=== PATIENT | male | born 1985 | race Caucasian/White ===

== ENCOUNTER 2018-07-30 07:33 | Inpatient (IN) | payer MEDICAID ==
[~2018-07-30] VITALS: Ht 175.3 cm; Wt 108.9 kg
[2018-07-30] VITALS (40 sets, daily range): BP systolic 63–143; BP diastolic 25–67
[2018-07-30] MEDS ORDERED: IBUP-2271 PO (08:44)
[2018-07-30] MEDS ORDERED: LACTATED RINGERS 1,000 ML IV SCH (09:15)
[2018-07-30] MEDS ORDERED: GELATIN SPONGE,ABSORBABLE 12-7MM SPONGE ONE (09:17)
[2018-07-30] MEDS ORDERED: LIDOCAINE HCL/EPINEPHRINE 1%-EPI 1:100,000 20 ML VIAL ONE (09:17)
[2018-07-30] MEDS ORDERED: NORMAL SALINE 0.9% 10 ML SYR ONE (09:17)
[2018-07-30] MEDS ORDERED: THROMBIN (BOVINE) 5000 UNITS/VIAL TOP ONE ×2 (09:17→09:18)
[2018-07-30] MEDS ORDERED: BACITRACIN 50,000 UNITS/VIAL ONE (09:18)
[2018-07-30] MEDS ORDERED: MIDAZOLAM HCL 2 MG/2 ML VIAL ONE (11:27)
[2018-07-30] MEDS ORDERED: PROPOFOL 200MG/20ML VIAL IV ONE (11:27)
[2018-07-30] MEDS ORDERED: ROCURONIUM BROMIDE 10MG/ML VIAL 5ML IV ONE ×2 (11:27→12:41)
[2018-07-30] MEDS ORDERED: FENTANYL CITRATE/PF 50MCG/ML 2ML VIAL ONE ×2 (11:27→13:36)
[2018-07-30] MEDS ORDERED: MORPHINE SULFATE 4 MG/ML CPJ (NOT FOR IM USE) IV PRN (11:45)
[2018-07-30] MEDS ORDERED: DEXAMETHASONE 4MG/ML 1ML VIAL IV SCH ×2 (12:00→18:00)
[2018-07-30] MEDS ORDERED: SUCCINYLCHOLINE CHLORIDE 200MG/10ML IV ONE (12:41)
[2018-07-30] MEDS ORDERED: GLYCOPYRROLATE 0.2 MG/ML 2ML VIAL ONE (13:02)
[2018-07-30] MEDS ORDERED: NEOSTIGMINE METHYLSULFATE 1MG/ML 10 ML VIAL ONE (13:02)
[2018-07-30] MEDS ORDERED: METOCLOPRAMIDE HCL 10MG/2ML VIAL ONE (13:35)
[2018-07-30] MEDS ORDERED: CEFAZOLIN SODIUM 1000MG/VIAL IV SCH (14:00)
[2018-07-30] MEDS ORDERED: NALOXONE INJ IV PRN (15:30)
[2018-07-30] MEDS ORDERED: DIPHENHYDRAMINE INJ IV PRN (15:30)
[2018-07-30] MEDS ORDERED: ONDANSETRON INJ IV PRN (15:30)
[2018-07-30] MEDS ORDERED: HYDROCODONE/APAP 7.5/325MG 1 TAB TABLET PO PRN (17:00)
[2018-07-30] MEDS: DEXAMETHASONE 4MG/ML 1ML VIAL IV SCH ×2 (17:14→23:42)
[2018-07-30] MEDS: DEXT 5%/LACTATED RINGERS 1,000 ML IV SCH ×2 (17:15→23:42)
[2018-07-30] MEDS ORDERED: NICARDIPINE 100 MG in SODIUM CHLORIDE 0.9% 60 ML IV PRN ×4 (17:30)
[2018-07-30] MEDS ORDERED: SODIUM CHLORIDE 0.9% 1,000 ML IV SCH ×2 (18:30)
[2018-07-30 18:48] LABS: HEMATOCRIT. 36.7 % (42.0-52.0); HEMOGLOBIN. 12.5 g/dL (14.0-18.0); MEAN CORPUSCULAR HEMOGLOBIN 28.8 pg (28.0-32.0); MEAN CORPUSCULAR VOLUME 84.2 fL (80.0-94.0); MEAN PLATELET VOLUME 7.9 fl (7.4-10.4); PLATELET 198 x1000/uL (130-400); RED BLOOD CELL COUNT 4.36 mill/uL (4.7-6.1); RED CELL DISTRIBUTION WIDTH 13.3 % (11.6-14.6)
[2018-07-30] MEDS ORDERED: ALBUMIN HUMAN 25GM/500ML (5%) IV NR (19:00)
[2018-07-30 20:34] LABS: PLATELET ESTIMATE NORMAL
[2018-07-30] MEDS: HYDROMORPHONE PCA 10MG/50ML IV PRN (21:09)
[2018-07-30] MEDS: CEFAZOLIN 1000MG PREMIX 50 ML IV SCH (21:59)
[2018-07-31] VITALS (97 sets, daily range): BP systolic 65–144; BP diastolic 29–77
[2018-07-31] MEDS: DEXT 5%/LACTATED RINGERS 1,000 ML IV SCH ×3 (06:02→23:56)
[2018-07-31] MEDS: DEXAMETHASONE 4MG/ML 1ML VIAL IV SCH ×3 (06:02→23:56)
[2018-07-31] MEDS: CEFAZOLIN 1000MG PREMIX 50 ML IV SCH ×3 (06:02→22:11)
[2018-07-31] MEDS ORDERED: SODIUM CHLORIDE 0.9% 500 ML IV SCH (06:45)
[2018-07-31] MEDS ORDERED: LACTATED RINGERS 1,000 ML IV ONE (08:15)
[2018-07-31 09:54] LABS: HEMATOCRIT. 35.9 % (42.0-52.0); HEMOGLOBIN. 12.1 g/dL (14.0-18.0); MEAN CORPUSCULAR HEMOGLOBIN 28.5 pg (28.0-32.0); MEAN CORPUSCULAR VOLUME 84.9 fL (80.0-94.0); MEAN PLATELET VOLUME 7.9 fl (7.4-10.4); PLATELET 215 x1000/uL (130-400); RED BLOOD CELL COUNT 4.23 mill/uL (4.7-6.1); RED CELL DISTRIBUTION WIDTH 13.4 % (11.6-14.6)
[2018-07-31 10:01] LABS: CHLORIDE 107 mEq/L (98-107)
[2018-07-31 10:41] LABS: PLATELET ESTIMATE NORMAL
[2018-07-31] MEDS: HYDROMORPHONE PCA 10MG/50ML IV PRN (22:12)
[2018-08-01] VITALS (104 sets, daily range): BP systolic 46–155; BP diastolic 27–89
[2018-08-01 05:55] LABS: CHLORIDE 107 mEq/L (98-107)
[2018-08-01 06:00] LABS: HEMATOCRIT. 33.5 % (42.0-52.0); HEMOGLOBIN. 11.3 g/dL (14.0-18.0); MEAN CORPUSCULAR HEMOGLOBIN 28.7 pg (28.0-32.0); MEAN CORPUSCULAR VOLUME 85.1 fL (80.0-94.0); MEAN PLATELET VOLUME 8.5 fl (7.4-10.4); PLATELET 212 x1000/uL (130-400); RED BLOOD CELL COUNT 3.94 mill/uL (4.7-6.1); RED CELL DISTRIBUTION WIDTH 13.3 % (11.6-14.6)
[2018-08-01] MEDS: CEFAZOLIN 1000MG PREMIX 50 ML IV SCH ×3 (06:34→21:14)
[2018-08-01] MEDS: DEXAMETHASONE 4MG/ML 1ML VIAL IV SCH ×3 (06:34→18:06)
[2018-08-01] MEDS: DOPAMINE 400MG/250ML PREMIX 250 ML IV PRN ×2 (07:33→15:16)
[2018-08-01] MEDS ORDERED: SODIUM CHLORIDE 0.9% 500 ML IV SCH (07:45)
[2018-08-01] MEDS: ONDANSETRON HCL 4MG/2ML INJ IV PRN ×2 (08:54→19:52)
[2018-08-01] MEDS: DEXT 5%/LACTATED RINGERS 1,000 ML IV SCH ×3 (09:42→19:52)
[2018-08-01 10:10] LABS: PLATELET ESTIMATE NORMAL
[2018-08-01] MEDS: FAMOTIDINE 20MG/2ML VIAL IV SCH (10:26)
[2018-08-01 20:19] LABS: CHLORIDE 105 mEq/L (98-107)
[2018-08-02] VITALS (94 sets, daily range): BP systolic 84–137; BP diastolic 26–78
[2018-08-02] MEDS: DOPAMINE 400MG/250ML PREMIX 250 ML IV PRN ×2 (00:28→15:51)
[2018-08-02] MEDS: DEXAMETHASONE 4MG/ML 1ML VIAL IV SCH ×4 (00:28→19:39)
[2018-08-02] MEDS: DEXT 5%/LACTATED RINGERS 1,000 ML IV SCH ×3 (02:55→19:40)
[2018-08-02 05:37] LABS: CHLORIDE 103 mEq/L (98-107)
[2018-08-02 08:13] LABS: HEMATOCRIT. 41.1 % (42.0-52.0); HEMOGLOBIN. 13.9 g/dL (14.0-18.0); MEAN CORPUSCULAR HEMOGLOBIN 28.5 pg (28.0-32.0); MEAN CORPUSCULAR VOLUME 84.3 fL (80.0-94.0); MEAN PLATELET VOLUME 7.3 fl (7.4-10.4); PLATELET 260 x1000/uL (130-400); RED BLOOD CELL COUNT 4.88 mill/uL (4.7-6.1); RED CELL DISTRIBUTION WIDTH 13.2 % (11.6-14.6)
[2018-08-02 08:34] LABS: PLATELET ESTIMATE NORMAL
[2018-08-02] MEDS: ONDANSETRON HCL 4MG/2ML INJ IV PRN (13:40)
[2018-08-02] MEDS: FAMOTIDINE 20MG/2ML VIAL IV SCH (13:40)
[2018-08-02] MEDS ORDERED: MAGNESIUM/ALUMINUM HYDROXIDE/SIMETHICONE 30ML UDC PO NR (15:15)
[2018-08-02] MEDS ORDERED: MAGNESIUM/ALUMINUM HYDROXIDE/SIMETHICONE 30ML UDC PO PRN (15:15)
[2018-08-02] MEDS ORDERED: PANTOPRAZOLE SODIUM 40 MG/VIAL IV NR (15:15)
[2018-08-02] MEDS: HYDROMORPHONE PCA 10MG/50ML IV PRN (15:22)
[2018-08-03] VITALS (100 sets, daily range): BP systolic 55–179; BP diastolic 29–84
[2018-08-03] MEDS: DEXAMETHASONE 4MG/ML 1ML VIAL IV SCH ×4 (00:19→18:24)
[2018-08-03] MEDS: DEXT 5%/LACTATED RINGERS 1,000 ML IV SCH ×3 (03:52→21:26)
[2018-08-03] MEDS: ONDANSETRON HCL 4MG/2ML INJ IV PRN (04:04)
[2018-08-03 05:47] LABS: BASOPHILS % 0.1 % (0.0-2.0); HEMATOCRIT. 44.6 % (42.0-52.0); HEMOGLOBIN. 15.2 g/dL (14.0-18.0); LYMPHOCYTES % 9.1 % (20.0-50.0); MEAN PLATELET VOLUME 7.6 fl (7.4-10.4); MONOCYTES % 6.1 % (2.0-8.0); NEUTROPHILS % 84.7 % (40.0-76.0); PLATELET 260 x1000/uL (130-400); RED BLOOD CELL COUNT 5.25 mill/uL (4.7-6.1); RED CELL DISTRIBUTION WIDTH 13.2 % (11.6-14.6)
[2018-08-03 05:55] LABS: CHLORIDE 101 mEq/L (98-107)
[2018-08-03] MEDS: PANTOPRAZOLE SODIUM 40 MG/VIAL IV SCH (09:51)
[2018-08-03] MEDS ORDERED: SODIUM CHLORIDE 0.9% 500 ML IV ONE (15:45)
[2018-08-04] VITALS (69 sets, daily range): BP systolic 74–139; BP diastolic 31–81
[2018-08-04] MEDS: DEXAMETHASONE 4MG/ML 1ML VIAL IV SCH ×2 (01:02→05:45)
[2018-08-04 06:06] LABS: HEMATOCRIT. 40.4 % (42.0-52.0); HEMOGLOBIN. 13.9 g/dL (14.0-18.0); MEAN CORPUSCULAR HEMOGLOBIN 29.1 pg (28.0-32.0); MEAN CORPUSCULAR VOLUME 84.5 fL (80.0-94.0); MEAN PLATELET VOLUME 7.9 fl (7.4-10.4); PLATELET 279 x1000/uL (130-400); RED BLOOD CELL COUNT 4.78 mill/uL (4.7-6.1); RED CELL DISTRIBUTION WIDTH 13.2 % (11.6-14.6)
[2018-08-04 06:14] LABS: CHLORIDE 101 mEq/L (98-107)
[2018-08-04] MEDS: DEXT 5%/LACTATED RINGERS 1,000 ML IV SCH ×2 (06:55→17:33)
[2018-08-04] MEDS ORDERED: SODIUM CHLORIDE 0.9% 250 ML IV ONE (08:30)
[2018-08-04] MEDS: PANTOPRAZOLE SODIUM 40 MG/VIAL IV SCH (08:44)
[2018-08-04 09:34] LABS: PLATELET ESTIMATE NORMAL
[2018-08-04] MEDS ORDERED: HYDROMORPHONE PCA 10MG/50ML IV PRN (17:30)
[2018-08-05] VITALS: BP 94/40
[2018-08-05] MEDS: DEXT 5%/LACTATED RINGERS 1,000 ML IV SCH ×4 (00:42→22:16)
[2018-08-05 04:00] VITALS: BP 91/40
[2018-08-05 06:20] LABS: HEMATOCRIT. 39.6 % (42.0-52.0); HEMOGLOBIN. 13.5 g/dL (14.0-18.0); MEAN CORPUSCULAR HEMOGLOBIN 29.1 pg (28.0-32.0); MEAN CORPUSCULAR VOLUME 85.3 fL (80.0-94.0); MEAN PLATELET VOLUME 7.8 fl (7.4-10.4); PLATELET 280 x1000/uL (130-400); RED BLOOD CELL COUNT 4.64 mill/uL (4.7-6.1); RED CELL DISTRIBUTION WIDTH 13.4 % (11.6-14.6)
[2018-08-05 06:50] LABS: CHLORIDE 100 mEq/L (98-107)
[2018-08-05 08:00] VITALS: BP 102/52
[2018-08-05] MEDS: DEXAMETHASONE 4MG TABLET PO SCH (09:37)
[2018-08-05] MEDS: PANTOPRAZOLE SODIUM 40 MG/VIAL IV SCH (09:37)
[2018-08-05 12:00] VITALS: BP 95/45
[2018-08-05 16:00] VITALS: BP 93/37
[2018-08-05] MEDS ORDERED: LACTULOSE 20G/30ML UDC PO NR (16:45)
[2018-08-05] MEDS: POLYETHYLENE GLYCOL 3350 (17GM) 1 DOSE PACK PO SCH ×3 (17:32→17:41)
[2018-08-05] MEDS: ACETAMINOPHEN 650MG/20.3ML UDC PO PRN (18:15)
[2018-08-05 20:00] VITALS: BP 103/46
[2018-08-05] MEDS: TRAMADOL 50MG TABLET PO PRN (22:12)
[2018-08-06] VITALS: BP 112/51
[2018-08-06 00:30] LABS: CLARITY URINE CLOUDY (CLEAR); COLOR URINE YELLOW (YELLOW); KETONES URINE NEGATIVE (NEGATIVE); LEUKOCYTE ESTERASE URINE 3+ (NEGATIVE); NITRITE URINE NEGATIVE (NEGATIVE); OCCULT BLOOD URINE 2+ (NEGATIVE); PH URINE 7.5 (4.5-8.0); PROTEIN URINE NEGATIVE (NEGATIVE); SPECIFIC GRAVITY URINE 1.018 (1.005-1.030)
[2018-08-06 04:00] VITALS: BP 106/45
[2018-08-06] MEDS: TRAMADOL 50MG TABLET PO PRN ×2 (05:32→17:35)
[2018-08-06 06:03] LABS: HEMATOCRIT. 41.5 % (42.0-52.0); HEMOGLOBIN. 14.3 g/dL (14.0-18.0); MEAN CORPUSCULAR HEMOGLOBIN 29.4 pg (28.0-32.0); MEAN CORPUSCULAR VOLUME 85.4 fL (80.0-94.0); MEAN PLATELET VOLUME 7.8 fl (7.4-10.4); PLATELET 267 x1000/uL (130-400); RED BLOOD CELL COUNT 4.86 mill/uL (4.7-6.1); RED CELL DISTRIBUTION WIDTH 13.3 % (11.6-14.6)
[2018-08-06 07:12] LABS: CHLORIDE 102 mEq/L (98-107)
[2018-08-06 08:00] VITALS: BP 115/85
[2018-08-06] MEDS: DEXAMETHASONE 4MG TABLET PO SCH (08:52)
[2018-08-06] MEDS: POLYETHYLENE GLYCOL 3350 (17GM) 1 DOSE PACK PO SCH (08:52)
[2018-08-06] MEDS: PANTOPRAZOLE SODIUM 40 MG/VIAL IV SCH (08:52)
[2018-08-06] MEDS: DEXT 5%/LACTATED RINGERS 1,000 ML IV SCH (08:53)
[2018-08-06 09:38] LABS: PLATELET ESTIMATE NORMAL
[2018-08-06] MEDS: CEFTRIAXONE 1 G PREMIX 50 ML IV SCH (09:57)
[2018-08-06 12:00] VITALS: BP 129/60
[2018-08-06] MEDS: HYDROCODONE/APAP 7.5/325MG 1 TAB TABLET PO PRN ×2 (13:44→21:22)
[2018-08-06 16:00] VITALS: BP 111/54
[2018-08-06 17:40] LABS: PLATELET ESTIMATE NORMAL
[2018-08-06 20:00] VITALS: BP 119/67
[2018-08-07] VITALS: BP 130/81
[2018-08-07] MEDS: TRAMADOL 50MG TABLET PO PRN (00:42)
[2018-08-07 04:00] VITALS: BP 109/61
[2018-08-07] MEDS: HYDROCODONE/APAP 7.5/325MG 1 TAB TABLET PO PRN ×3 (04:33→22:30)
[2018-08-07] MEDS: DEXT 5%/LACTATED RINGERS 1,000 ML IV SCH ×2 (04:34→22:43)
[2018-08-07 06:48] LABS: HEMATOCRIT. 40.3 % (42.0-52.0); HEMOGLOBIN. 13.9 g/dL (14.0-18.0); MEAN CORPUSCULAR HEMOGLOBIN 29.4 pg (28.0-32.0); MEAN CORPUSCULAR VOLUME 85.4 fL (80.0-94.0); MEAN PLATELET VOLUME 7.7 fl (7.4-10.4); PLATELET 271 x1000/uL (130-400); RED BLOOD CELL COUNT 4.72 mill/uL (4.7-6.1); RED CELL DISTRIBUTION WIDTH 13.6 % (11.6-14.6)
[2018-08-07 07:18] LABS: CHLORIDE 99 mEq/L (98-107)
[2018-08-07 08:00] VITALS: BP 109/61
[2018-08-07] MEDS: POLYETHYLENE GLYCOL 3350 (17GM) 1 DOSE PACK PO SCH (08:34)
[2018-08-07] MEDS: DEXAMETHASONE 2MG TABLET PO SCH (08:34)
[2018-08-07] MEDS: FAMOTIDINE 20MG/2ML VIAL IV SCH (08:34)
[2018-08-07] MEDS: CEFTRIAXONE 1 G PREMIX 50 ML IV SCH (09:07)
[2018-08-07] MEDS ORDERED: MAGNESIUM CITRATE 300ML SOLUTION PO NR (10:30)
[2018-08-07 11:48] VITALS: BP 111/55
[2018-08-07 16:00] VITALS: BP 114/59
[2018-08-07] MEDS: ACETAMINOPHEN 650MG/20.3ML UDC PO PRN (16:30)
[2018-08-07] MEDS: MORPHINE SULFATE 4 MG/ML CPJ (NOT FOR IM USE) IV PRN (16:31)
[2018-08-07 16:38] LABS: PLATELET ESTIMATE NORMAL
[2018-08-07 20:00] VITALS: BP 130/72
[2018-08-08] VITALS: BP 109/52
[2018-08-08] MEDS: FAMOTIDINE 20MG/2ML VIAL IV SCH ×3 (01:12→20:10)
[2018-08-08] MEDS: MORPHINE SULFATE 4 MG/ML CPJ (NOT FOR IM USE) IV PRN (01:13)
[2018-08-08 04:00] VITALS: BP 115/67
[2018-08-08 06:52] LABS: CHLORIDE 101 mEq/L (98-107)
[2018-08-08 07:03] LABS: BASOPHILS % 0.1 % (0.0-2.0); HEMATOCRIT. 39.2 % (42.0-52.0); HEMOGLOBIN. 13.6 g/dL (14.0-18.0); LYMPHOCYTES % 23.2 % (20.0-50.0); MEAN CORPUSCULAR HEMOGLOBIN 29.4 pg (28.0-32.0); MEAN PLATELET VOLUME 7.6 fl (7.4-10.4); MONOCYTES % 8.5 % (2.0-8.0); NEUTROPHILS % 67.2 % (40.0-76.0); PLATELET 256 x1000/uL (130-400); RED BLOOD CELL COUNT 4.61 mill/uL (4.7-6.1); RED CELL DISTRIBUTION WIDTH 13.8 % (11.6-14.6)
[2018-08-08 07:36] VITALS: BP 112/62
[2018-08-08] MEDS: POLYETHYLENE GLYCOL 3350 (17GM) 1 DOSE PACK PO SCH (08:14)
[2018-08-08] MEDS: DEXAMETHASONE 2MG TABLET PO SCH (08:21)
[2018-08-08] MEDS: HYDROCODONE/APAP 7.5/325MG 1 TAB TABLET PO PRN ×2 (08:31→20:09)
[2018-08-08] MEDS: CEFTRIAXONE 1 G PREMIX 50 ML IV SCH (08:31)
[2018-08-08] MEDS: DEXT 5%/LACTATED RINGERS 1,000 ML IV SCH ×2 (08:32→15:42)
[2018-08-08 12:00] VITALS: BP 112/73
[2018-08-08] MEDS: TRAMADOL 50MG TABLET PO PRN (13:06)
[2018-08-08 16:00] VITALS: BP 111/63
[2018-08-08 20:00] VITALS: BP 107/54
[2018-08-09] VITALS: BP 110/57
[2018-08-09] MEDS: TRAMADOL 50MG TABLET PO PRN ×2 (03:52→15:19)
[2018-08-09] MEDS: DEXT 5%/LACTATED RINGERS 1,000 ML IV SCH ×3 (03:59→15:25)
[2018-08-09 04:00] VITALS: BP 111/57
[2018-08-09 07:41] LABS: BASOPHILS % 0.2 % (0.0-2.0); HEMATOCRIT. 41.6 % (42.0-52.0); HEMOGLOBIN. 13.8 g/dL (14.0-18.0); LYMPHOCYTES % 22.8 % (20.0-50.0); MEAN CORPUSCULAR HEMOGLOBIN 28.8 pg (28.0-32.0); MEAN CORPUSCULAR VOLUME 86.8 fL (80.0-94.0); MEAN PLATELET VOLUME 7.5 fl (7.4-10.4); MONOCYTES % 10.3 % (2.0-8.0); NEUTROPHILS % 65.7 % (40.0-76.0); PLATELET 249 x1000/uL (130-400); RED BLOOD CELL COUNT 4.79 mill/uL (4.7-6.1); RED CELL DISTRIBUTION WIDTH 13.7 % (11.6-14.6)
[2018-08-09 08:00] VITALS: BP 123/67
[2018-08-09 08:02] LABS: CHLORIDE 101 mEq/L (98-107)
[2018-08-09] MEDS: FAMOTIDINE 20MG/2ML VIAL IV SCH ×2 (08:32→20:56)
[2018-08-09] MEDS: DEXAMETHASONE 2MG TABLET PO SCH (08:32)
[2018-08-09] MEDS: CEFTRIAXONE 1 G PREMIX 50 ML IV SCH (08:33)
[2018-08-09] MEDS: POLYETHYLENE GLYCOL 3350 (17GM) 1 DOSE PACK PO SCH (09:00)
[2018-08-09] MEDS: HYDROCODONE/APAP 7.5/325MG 1 TAB TABLET PO PRN ×2 (11:01→19:54)
[2018-08-09 12:00] VITALS: BP 108/54
[2018-08-09 16:00] VITALS: BP 109/64
[2018-08-09 20:00] VITALS: BP 118/54
[2018-08-10] VITALS: BP 103/56
[2018-08-10] MEDS: DEXT 5%/LACTATED RINGERS 1,000 ML IV SCH (01:04)
[2018-08-10 04:00] VITALS: BP 100/59
[2018-08-10] MEDS: TRAMADOL 50MG TABLET PO PRN ×2 (05:33→13:42)
[2018-08-10 08:00] VITALS: BP 123/64
[2018-08-10] MEDS: POLYETHYLENE GLYCOL 3350 (17GM) 1 DOSE PACK PO SCH (09:00)
[2018-08-10] MEDS: DEXAMETHASONE 2MG TABLET PO SCH (09:12)
[2018-08-10] MEDS: CEFTRIAXONE 1 G PREMIX 50 ML IV SCH (09:15)
[2018-08-10] MEDS: HYDROCODONE/APAP 7.5/325MG 1 TAB TABLET PO PRN ×2 (09:15→21:29)
[2018-08-10] MEDS: FAMOTIDINE 20MG/2ML VIAL IV SCH ×2 (09:15→21:29)
[2018-08-10 12:00] VITALS: BP 109/63
[2018-08-10 16:00] VITALS: BP 114/63
[2018-08-10 20:00] VITALS: BP 99/68
[2018-08-11] VITALS: BP 98/52
[2018-08-11 04:00] VITALS: BP 93/52
[2018-08-11] MEDS: DEXT 5%/LACTATED RINGERS 1,000 ML IV SCH ×3 (04:30→15:24)
[2018-08-11] MEDS: TRAMADOL 50MG TABLET PO PRN (04:44)
[2018-08-11 08:00] VITALS: BP 112/54
[2018-08-11 08:07] LABS: BASOPHILS % 0.1 % (0.0-2.0); EOSINOPHILS % 0.7 % (0.0-5.0); HEMATOCRIT. 39.1 % (42.0-52.0); HEMOGLOBIN. 13.1 g/dL (14.0-18.0); LYMPHOCYTES % 18.7 % (20.0-50.0); MEAN CORPUSCULAR VOLUME 86.4 fL (80.0-94.0); MEAN PLATELET VOLUME 7.6 fl (7.4-10.4); MONOCYTES % 6.9 % (2.0-8.0); NEUTROPHILS % 73.6 % (40.0-76.0); PLATELET 237 x1000/uL (130-400); RED BLOOD CELL COUNT 4.53 mill/uL (4.7-6.1); RED CELL DISTRIBUTION WIDTH 13.9 % (11.6-14.6)
[2018-08-11 08:33] LABS: CHLORIDE 103 mEq/L (98-107)
[2018-08-11] MEDS: DEXAMETHASONE 2MG TABLET PO SCH (09:08)
[2018-08-11] MEDS: FAMOTIDINE 20MG/2ML VIAL IV SCH ×2 (09:09→20:41)
[2018-08-11] MEDS: POLYETHYLENE GLYCOL 3350 (17GM) 1 DOSE PACK PO SCH (09:09)
[2018-08-11 12:00] VITALS: BP 98/49
[2018-08-11] MEDS: HYDROCODONE/APAP 7.5/325MG 1 TAB TABLET PO PRN ×2 (14:39→20:42)
[2018-08-11 16:00] VITALS: BP 107/45
[2018-08-11] MEDS ORDERED: NA PHOS,M-B/NA PHOS,DI-BA ENEMA 118ML PR NR (16:00)
[2018-08-11 20:00] VITALS: BP 114/57
[2018-08-12] VITALS: BP 102/59
[2018-08-12 04:00] VITALS: BP 101/51
[2018-08-12 08:00] VITALS: BP 98/40
[2018-08-12] MEDS: FAMOTIDINE 20MG/2ML VIAL IV SCH ×2 (08:36→22:37)
[2018-08-12] MEDS: TRAMADOL 50MG TABLET PO PRN ×2 (08:36→17:06)
[2018-08-12] MEDS: DEXT 5%/LACTATED RINGERS 1,000 ML IV SCH ×2 (08:36→22:09)
[2018-08-12] MEDS: POLYETHYLENE GLYCOL 3350 (17GM) 1 DOSE PACK PO SCH (08:36)
[2018-08-12 12:00] VITALS: BP 94/42
[2018-08-12 16:00] VITALS: BP 102/51
[2018-08-12 20:00] VITALS: BP 102/51
[2018-08-13] VITALS: BP 102/52
[2018-08-13 04:00] VITALS: BP 102/51
[2018-08-13 08:00] VITALS: BP 102/49
[2018-08-13] MEDS: POLYETHYLENE GLYCOL 3350 (17GM) 1 DOSE PACK PO SCH (08:22)
[2018-08-13] MEDS: FAMOTIDINE 20MG/2ML VIAL IV SCH ×2 (08:22→21:36)
[2018-08-13 12:00] VITALS: BP 104/51
[2018-08-13] MEDS: HYDROCODONE/APAP 7.5/325MG 1 TAB TABLET PO PRN ×2 (14:43→21:36)
[2018-08-13 16:00] VITALS: BP 96/50
[2018-08-13 20:00] VITALS: BP 98/53
[2018-08-13] MEDS: BISACODYL 5MG TABLET PO SCH (21:00)
[2018-08-14] VITALS: BP 105/57
[2018-08-14 04:00] VITALS: BP 95/52
[2018-08-14 08:00] VITALS: BP 114/75
[2018-08-14] MEDS: TRAMADOL 50MG TABLET PO PRN ×3 (08:35→21:46)
[2018-08-14] MEDS: FAMOTIDINE 20MG/2ML VIAL IV SCH ×2 (08:35→21:45)
[2018-08-14 12:00] VITALS: BP 113/78
[2018-08-14] MEDS: DEXT 5%/LACTATED RINGERS 1,000 ML IV SCH ×3 (13:21→21:52)
[2018-08-14 16:00] VITALS: BP 111/78
[2018-08-14] MEDS ORDERED: BISACODYL 10MG SUPP PR PRN (19:00)
[2018-08-14 20:00] VITALS: BP_SYST 109; BP_SYST 116; BP_DIAS 54
[2018-08-14] MEDS: BISACODYL 5MG TABLET PO SCH (21:45)
[2018-08-14] MEDS: ONDANSETRON HCL 4MG/2ML INJ IV PRN (21:45)
[2018-08-15] VITALS: BP 112/50
[2018-08-15 04:00] VITALS: BP 108/56
[2018-08-15 06:33] LABS: BASOPHILS % 0.6 % (0.0-2.0); EOSINOPHILS % 1.3 % (0.0-5.0); HEMOGLOBIN. 13.7 g/dL (14.0-18.0); LYMPHOCYTES % 16.6 % (20.0-50.0); MEAN CORPUSCULAR HEMOGLOBIN 29.5 pg (28.0-32.0); MEAN CORPUSCULAR VOLUME 86.3 fL (80.0-94.0); MEAN PLATELET VOLUME 7.2 fl (7.4-10.4); MONOCYTES % 6.6 % (2.0-8.0); NEUTROPHILS % 74.9 % (40.0-76.0); PLATELET 216 x1000/uL (130-400); RED BLOOD CELL COUNT 4.64 mill/uL (4.7-6.1); RED CELL DISTRIBUTION WIDTH 14.1 % (11.6-14.6)
[2018-08-15 07:50] LABS: CHLORIDE 102 mEq/L (98-107)
[2018-08-15 08:00] VITALS: BP 101/42
[2018-08-15] MEDS: FAMOTIDINE 20MG/2ML VIAL IV SCH (09:33)
[2018-08-15] MEDS: TRAMADOL 50MG TABLET PO PRN ×2 (09:33→14:23)
[2018-08-15] MEDS: DEXT 5%/LACTATED RINGERS 1,000 ML IV SCH ×3 (09:39→14:24)
[2018-08-15 12:00] VITALS: BP 91/61
[2018-08-15 16:00] VITALS: BP 107/63
[2018-08-15 17:06] VITALS: BP 115/79
== END 2018-08-15 19:12 | DRG 310 ==
LOC: OR 07:33 → MICUSO 16:54 → 7WST 08-04 21:03 → 6EST 08-06 12:45
PROVIDERS: ADMIT Internal Medicine; ATTEND Neurological Surgery
PROC: 00NX0ZZ Release Thoracic Spinal Cord, Open Approach (ICD-10-PCS; principal; 2018-07-30)
PROC: 02HV33Z Insertion of Infusion Device into Superior Vena Cava, Percutaneous Approach (ICD-10-PCS; 2018-08-01)
PROC: B548ZZA Ultrasonography of Superior Vena Cava, Guidance (ICD-10-PCS; 2018-08-01)
DX: M48.04 Spinal stenosis, thoracic region (principal); G95.89 Other specified diseases of spinal cord; I95.89 Other hypotension; G82.20 Paraplegia, unspecified; G95.29 Other cord compression; I07.1 Rheumatic tricuspid insufficiency; D64.9 Anemia, unspecified; D72.829 Elevated white blood cell count, unspecified; N39.0 Urinary tract infection, site not specified; F17.290 Nicotine dependence, other tobacco product, uncomplicated; D72.823 Leukemoid reaction; E78.5 Hyperlipidemia, unspecified; T38.0X5A Adverse effect of glucocorticoids and synthetic analogues, initial encounter; Y92.89 Other specified places as the place of occurrence of the external cause; R00.1 Bradycardia, unspecified
CPT/HCPCS: 36415; 36569; 71045; 72070; 72146; 76000; 76937; 80048; 83605; 83935; 84145; 86850; 86900; 93005; 93306; 95925; 95926; 95928; 95929; 97110; 97112; 97162; 97166; 97530; 97535; C1725; C9113; J0330; J0690; J0696; J1100; J1170; J1265; J2250; J2270; J2405; J2704; J2710; J2765; J3010; J3490; J7040; J7050; J7070; J7121; J8540; P9041

== ENCOUNTER → 2019-11-04 | Outpatient (CLI) | payer MEDICAID ==
[~2019-11-04] MED LIST: IBUP-2741 PO
== END | disposition home or self-care (01) ==
LOC: LAB 07:51
PROVIDERS: ATTEND Neurological Surgery
DX: Z01.818 Encounter for other preprocedural examination (principal); Z11.59 Encounter for screening for other viral diseases
CPT/HCPCS: C9803; U0003

== ENCOUNTER 2019-11-13 18:05 | Inpatient (IN) | payer MEDICAID ==
[~2019-11-13] VITALS: Ht 170.2 cm; Wt 119.3 kg
[~2019-11-13 18:05] MED LIST changes: +BACL-141 PO; +GABA-531 PO; -IBUP-2741 PO; +MELO-106 PO
[2019-11-13 19:00] VITALS: BP 144/74
[2019-11-13] MEDS ORDERED: PIPERACILLIN/TAZOBACTAM 3.375 G/VIAL IV SCH (19:00)
[2019-11-13 20:00] VITALS: BP 144/74
[2019-11-13] MEDS: GABAPENTIN 300MG CAPSULE PO SCH (20:45)
[2019-11-13] MEDS: OXYCODONE HCL/ACETAMINOPHEN 5/325MG TABLET PO PRN (20:46)
[2019-11-13] MEDS: AMLODIPINE 5MG TABLET PO SCH (20:47)
[2019-11-13] MEDS: PIPERACILLIN/TAZOBACTAM 3.375 G in DEXT 5% WATER 100 ML IV SCH (20:51)
[2019-11-13] MEDS ORDERED: AMLODIPINE 2.5MG TABLET PO SCH (21:00)
[2019-11-14] MEDS: OXYCODONE HCL/ACETAMINOPHEN 5/325MG TABLET PO PRN ×5 (00:54→20:06)
[2019-11-14] MEDS: PIPERACILLIN/TAZOBACTAM 3.375 G in DEXT 5% WATER 100 ML IV SCH ×4 (03:26→20:05)
[2019-11-14] MEDS: GABAPENTIN 300MG CAPSULE PO SCH ×3 (05:44→21:22)
[2019-11-14] MEDS ORDERED: NA PHOS,M-B/NA PHOS,DI-BA ENEMA 118ML PR PRN ×2 (07:15→14:30)
[2019-11-14] MEDS: AMLODIPINE 5MG TABLET PO SCH ×2 (08:24→20:06)
[2019-11-14] MEDS: LOSARTAN POTASSIUM 25 MG TABLET PO SCH (08:24)
[2019-11-14 09:50] VITALS: BP 142/74
[2019-11-14 11:15] VITALS: BP 123/70
[2019-11-14] MEDS: TRAMADOL 50MG TABLET PO PRN ×2 (11:20→19:14)
[2019-11-14 15:55] VITALS: BP 133/68
[2019-11-14] MEDS: DOCUSATE SODIUM 100MG CAPSULE PO SCH (16:00)
[2019-11-14 20:00] VITALS: BP 129/61
[2019-11-15] MEDS: OXYCODONE HCL/ACETAMINOPHEN 5/325MG TABLET PO PRN ×6 (00:09→22:03)
[2019-11-15] MEDS: TRAMADOL 50MG TABLET PO PRN ×3 (02:04→20:27)
[2019-11-15] MEDS: GABAPENTIN 300MG CAPSULE PO SCH ×3 (05:39→21:03)
[2019-11-15 08:23] VITALS: BP 158/68
[2019-11-15] MEDS: LOSARTAN POTASSIUM 25 MG TABLET PO SCH (08:34)
[2019-11-15] MEDS: DOCUSATE SODIUM 100MG CAPSULE PO SCH ×2 (08:34→17:38)
[2019-11-15] MEDS: AMLODIPINE 5MG TABLET PO SCH ×2 (08:34→20:27)
[2019-11-15 20:00] VITALS: BP 133/71
[2019-11-16] MEDS: OXYCODONE HCL/ACETAMINOPHEN 5/325MG TABLET PO PRN ×6 (02:03→21:57)
[2019-11-16] MEDS: TRAMADOL 50MG TABLET PO PRN ×3 (04:17→16:05)
[2019-11-16] MEDS: GABAPENTIN 300MG CAPSULE PO SCH ×3 (06:02→21:56)
[2019-11-16 08:00] VITALS: BP 122/71
[2019-11-16] MEDS: DOCUSATE SODIUM 100MG CAPSULE PO SCH ×2 (08:55→16:06)
[2019-11-16] MEDS: LOSARTAN POTASSIUM 25 MG TABLET PO SCH (08:57)
[2019-11-16] MEDS: AMLODIPINE 5MG TABLET PO SCH ×2 (08:57→21:56)
[2019-11-16 22:21] VITALS: BP 123/70
[2019-11-17] MEDS: TRAMADOL 50MG TABLET PO PRN ×2 (00:09→10:13)
[2019-11-17] MEDS: OXYCODONE HCL/ACETAMINOPHEN 5/325MG TABLET PO PRN ×4 (04:15→22:33)
[2019-11-17] MEDS: BISACODYL 5MG TABLET PO PRN (06:39)
[2019-11-17] MEDS: GABAPENTIN 300MG CAPSULE PO SCH ×3 (06:39→22:32)
[2019-11-17 08:00] VITALS: BP 138/70
[2019-11-17] MEDS: AMLODIPINE 5MG TABLET PO SCH ×2 (10:01→22:32)
[2019-11-17] MEDS: LOSARTAN POTASSIUM 25 MG TABLET PO SCH (10:01)
[2019-11-17] MEDS: DOCUSATE SODIUM 100MG CAPSULE PO SCH ×2 (10:02→17:59)
[2019-11-17] MEDS: LACTULOSE 20G/30ML UDC PO PRN (17:59)
[2019-11-17 20:00] VITALS: BP 152/74
[2019-11-18] MEDS: OXYCODONE HCL/ACETAMINOPHEN 5/325MG TABLET PO PRN ×5 (04:49→22:00)
[2019-11-18] MEDS: GABAPENTIN 300MG CAPSULE PO SCH ×3 (06:32→21:58)
[2019-11-18 07:00] VITALS: BP 134/64
[2019-11-18 07:54] LABS: BASOPHILS % 0.2 % (0.0-2.0); HEMOGLOBIN. 14.5 g/dL (14.0-18.0); LYMPHOCYTES % 13.8 % (20.0-50.0); MEAN CORPUSCULAR HEMOGLOBIN 28.6 pg (28.0-32.0); MEAN CORPUSCULAR VOLUME 82.7 fL (80.0-94.0); MEAN PLATELET VOLUME 7.5 fl (7.4-10.4); MONOCYTES % 6.6 % (2.0-8.0); NEUTROPHILS % 78.4 % (40.0-76.0); PLATELET 233 x1000/uL (130-400); RED BLOOD CELL COUNT 5.08 mill/uL (4.7-6.1); RED CELL DISTRIBUTION WIDTH 14.3 % (11.6-14.6)
[2019-11-18 08:12] LABS: CHLORIDE 98 mEq/L (98-107)
[2019-11-18] MEDS: DOCUSATE SODIUM 100MG CAPSULE PO SCH ×2 (09:09→18:00)
[2019-11-18] MEDS: LOSARTAN POTASSIUM 25 MG TABLET PO SCH (09:09)
[2019-11-18] MEDS: AMLODIPINE 5MG TABLET PO SCH ×2 (09:10→22:01)
[2019-11-18 12:18] VITALS: BP 130/64
[2019-11-18] MEDS: TRAMADOL 50MG TABLET PO PRN (12:23)
[2019-11-18 13:20] VITALS: BP 136/69
[2019-11-18 17:55] VITALS: BP 139/69
[2019-11-18 20:00] VITALS: BP 128/71
[2019-11-19] MEDS: OXYCODONE HCL/ACETAMINOPHEN 5/325MG TABLET PO PRN ×5 (03:00→22:02)
[2019-11-19] MEDS: GABAPENTIN 300MG CAPSULE PO SCH ×3 (06:51→21:57)
[2019-11-19 08:00] VITALS: BP 122/75
[2019-11-19] MEDS: LOSARTAN POTASSIUM 25 MG TABLET PO SCH (10:11)
[2019-11-19] MEDS: DOCUSATE SODIUM 100MG CAPSULE PO SCH ×2 (10:11→18:14)
[2019-11-19] MEDS: AMLODIPINE 5MG TABLET PO SCH ×2 (10:11→21:56)
[2019-11-19 16:00] VITALS: BP 122/74
[2019-11-19 20:00] VITALS: BP 132/78
[2019-11-20] MEDS: OXYCODONE HCL/ACETAMINOPHEN 5/325MG TABLET PO PRN ×6 (02:12→22:09)
[2019-11-20] MEDS: GABAPENTIN 300MG CAPSULE PO SCH ×3 (06:05→21:19)
[2019-11-20 08:00] VITALS: BP 141/64
[2019-11-20] MEDS: DOCUSATE SODIUM 100MG CAPSULE PO SCH ×2 (09:35→18:10)
[2019-11-20] MEDS: LOSARTAN POTASSIUM 25 MG TABLET PO SCH (09:35)
[2019-11-20] MEDS: AMLODIPINE 5MG TABLET PO SCH ×2 (09:35→21:19)
[2019-11-20 20:00] VITALS: BP 136/63
[2019-11-21] MEDS: GABAPENTIN 300MG CAPSULE PO SCH ×3 (05:33→21:34)
[2019-11-21] MEDS: OXYCODONE HCL/ACETAMINOPHEN 5/325MG TABLET PO PRN ×4 (05:33→23:29)
[2019-11-21] MEDS: BISACODYL 5MG TABLET PO PRN (05:34)
[2019-11-21 08:03] VITALS: BP 149/87
[2019-11-21] MEDS: AMLODIPINE 5MG TABLET PO SCH ×2 (10:19→21:36)
[2019-11-21] MEDS: LOSARTAN POTASSIUM 25 MG TABLET PO SCH (10:20)
[2019-11-21] MEDS: DOCUSATE SODIUM 100MG CAPSULE PO SCH ×2 (10:20→17:22)
[2019-11-21] MEDS ORDERED: NA PHOS,M-B/NA PHOS,DI-BA ENEMA 118ML PR PRN (13:15)
[2019-11-21 20:00] VITALS: BP 116/60
[2019-11-22] MEDS: GABAPENTIN 300MG CAPSULE PO SCH ×3 (05:43→21:53)
[2019-11-22] MEDS: OXYCODONE HCL/ACETAMINOPHEN 5/325MG TABLET PO PRN ×4 (05:46→21:55)
[2019-11-22 08:21] VITALS: BP 124/72
[2019-11-22] MEDS: LOSARTAN POTASSIUM 25 MG TABLET PO SCH (11:14)
[2019-11-22] MEDS: DOCUSATE SODIUM 100MG CAPSULE PO SCH ×2 (11:14→17:52)
[2019-11-22] MEDS: AMLODIPINE 5MG TABLET PO SCH ×2 (11:15→21:00)
[2019-11-22 17:45] VITALS: BP 120/60
[2019-11-22 20:00] VITALS: BP 98/59
[2019-11-23] MEDS: OXYCODONE HCL/ACETAMINOPHEN 5/325MG TABLET PO PRN ×5 (02:56→22:07)
[2019-11-23] MEDS: GABAPENTIN 300MG CAPSULE PO SCH ×3 (06:31→21:00)
[2019-11-23 08:00] VITALS: BP 150/63
[2019-11-23] MEDS: LOSARTAN POTASSIUM 25 MG TABLET PO SCH (08:11)
[2019-11-23] MEDS: AMLODIPINE 5MG TABLET PO SCH ×2 (08:12→20:43)
[2019-11-23] MEDS: DOCUSATE SODIUM 100MG CAPSULE PO SCH ×2 (08:12→16:09)
[2019-11-23 20:00] VITALS: BP 130/57
[2019-11-23] MEDS: BISACODYL 5MG TABLET PO PRN (22:07)
[2019-11-24] MEDS: OXYCODONE HCL/ACETAMINOPHEN 5/325MG TABLET PO PRN ×4 (03:55→19:46)
[2019-11-24] MEDS: GABAPENTIN 300MG CAPSULE PO SCH ×3 (06:00→21:38)
[2019-11-24 07:45] VITALS: BP 133/65
[2019-11-24] MEDS: DOCUSATE SODIUM 100MG CAPSULE PO SCH ×2 (08:13→16:16)
[2019-11-24] MEDS: LOSARTAN POTASSIUM 25 MG TABLET PO SCH (08:13)
[2019-11-24] MEDS: AMLODIPINE 5MG TABLET PO SCH ×2 (08:13→21:38)
[2019-11-24 20:00] VITALS: BP 126/62
[2019-11-25] MEDS: OXYCODONE HCL/ACETAMINOPHEN 5/325MG TABLET PO PRN ×5 (03:58→20:52)
[2019-11-25] MEDS: BISACODYL 5MG TABLET PO PRN (06:04)
[2019-11-25] MEDS: GABAPENTIN 300MG CAPSULE PO SCH ×3 (06:04→20:51)
[2019-11-25 07:29] LABS: BASOPHILS % 0.9 % (0.0-2.0); HEMATOCRIT. 37.4 % (42.0-52.0); LYMPHOCYTES % 20.8 % (20.0-50.0); MEAN CORPUSCULAR HEMOGLOBIN 29.2 pg (28.0-32.0); MEAN CORPUSCULAR VOLUME 83.7 fL (80.0-94.0); MEAN PLATELET VOLUME 7.1 fl (7.4-10.4); MONOCYTES % 5.3 % (2.0-8.0); PLATELET 179 x1000/uL (130-400); RED BLOOD CELL COUNT 4.47 mill/uL (4.7-6.1); RED CELL DISTRIBUTION WIDTH 14.7 % (11.6-14.6)
[2019-11-25] MEDS: AMLODIPINE 5MG TABLET PO SCH ×2 (08:08→20:51)
[2019-11-25] MEDS: DOCUSATE SODIUM 100MG CAPSULE PO SCH ×2 (08:08→16:36)
[2019-11-25] MEDS: LOSARTAN POTASSIUM 25 MG TABLET PO SCH (08:08)
[2019-11-25 08:22] VITALS: BP 129/74
[2019-11-25 08:28] LABS: CHLORIDE 102 mEq/L (98-107)
[2019-11-25 11:45] VITALS: BP 125/63
[2019-11-25] MEDS: BACLOFEN 10MG TABLET PO SCH ×2 (12:41→16:38)
[2019-11-25 20:00] VITALS: BP 131/66
[2019-11-26] MEDS: OXYCODONE HCL/ACETAMINOPHEN 5/325MG TABLET PO PRN ×5 (03:31→21:58)
[2019-11-26] MEDS: GABAPENTIN 300MG CAPSULE PO SCH ×3 (06:57→21:58)
[2019-11-26] MEDS: DOCUSATE SODIUM 100MG CAPSULE PO SCH ×2 (07:57→19:29)
[2019-11-26] MEDS: BACLOFEN 10MG TABLET PO SCH ×2 (07:57→19:30)
[2019-11-26] MEDS: LOSARTAN POTASSIUM 25 MG TABLET PO SCH (07:57)
[2019-11-26] MEDS: AMLODIPINE 5MG TABLET PO SCH ×2 (07:58→21:58)
[2019-11-26 08:00] VITALS: BP 144/69
[2019-11-26 11:15] VITALS: BP 113/54
[2019-11-26 15:45] VITALS: BP 110/58
[2019-11-26 20:00] VITALS: BP 122/63
[2019-11-27] MEDS: GABAPENTIN 300MG CAPSULE PO SCH ×3 (05:05→22:36)
[2019-11-27] MEDS: OXYCODONE HCL/ACETAMINOPHEN 5/325MG TABLET PO PRN ×4 (05:06→22:38)
[2019-11-27 07:44] VITALS: BP 131/65
[2019-11-27] MEDS: DOCUSATE SODIUM 100MG CAPSULE PO SCH ×2 (08:07→16:00)
[2019-11-27] MEDS: LOSARTAN POTASSIUM 25 MG TABLET PO SCH (08:07)
[2019-11-27] MEDS: BACLOFEN 10MG TABLET PO SCH ×2 (08:07→16:00)
[2019-11-27] MEDS: AMLODIPINE 5MG TABLET PO SCH ×2 (08:07→22:37)
[2019-11-27 20:00] VITALS: BP 153/67
[2019-11-28] MEDS: GABAPENTIN 300MG CAPSULE PO SCH ×3 (06:41→21:02)
[2019-11-28] MEDS: OXYCODONE HCL/ACETAMINOPHEN 5/325MG TABLET PO PRN ×4 (06:48→20:46)
[2019-11-28] MEDS: AMLODIPINE 5MG TABLET PO SCH ×2 (08:14→20:45)
[2019-11-28] MEDS: BACLOFEN 10MG TABLET PO SCH ×2 (08:14→17:01)
[2019-11-28] MEDS: DOCUSATE SODIUM 100MG CAPSULE PO SCH ×2 (08:14→17:01)
[2019-11-28] MEDS: LOSARTAN POTASSIUM 25 MG TABLET PO SCH (08:14)
[2019-11-28 08:23] VITALS: BP 120/59
[2019-11-28 20:00] VITALS: BP 124/67
[2019-11-29] MEDS: GABAPENTIN 300MG CAPSULE PO SCH ×3 (06:03→21:17)
[2019-11-29] MEDS: OXYCODONE HCL/ACETAMINOPHEN 5/325MG TABLET PO PRN ×4 (06:04→20:24)
[2019-11-29 08:00] VITALS: BP 136/77
[2019-11-29] MEDS: DOCUSATE SODIUM 100MG CAPSULE PO SCH ×2 (09:05→16:40)
[2019-11-29] MEDS: AMLODIPINE 5MG TABLET PO SCH ×2 (09:05→20:23)
[2019-11-29] MEDS: LOSARTAN POTASSIUM 25 MG TABLET PO SCH (09:05)
[2019-11-29] MEDS: BACLOFEN 10MG TABLET PO SCH ×2 (09:05→16:40)
[2019-11-29 20:00] VITALS: BP 128/68
[2019-11-29] MEDS: BISACODYL 5MG TABLET PO PRN (20:25)
[2019-11-30] MEDS: OXYCODONE HCL/ACETAMINOPHEN 5/325MG TABLET PO PRN ×5 (05:09→22:05)
[2019-11-30] MEDS: GABAPENTIN 300MG CAPSULE PO SCH ×3 (05:09→21:33)
[2019-11-30 08:00] VITALS: BP 118/71
[2019-11-30 08:24] VITALS: BP 118/71
[2019-11-30] MEDS: AMLODIPINE 5MG TABLET PO SCH ×2 (09:05→20:12)
[2019-11-30] MEDS: BACLOFEN 10MG TABLET PO SCH ×2 (09:05→17:40)
[2019-11-30] MEDS: DOCUSATE SODIUM 100MG CAPSULE PO SCH ×2 (09:05→17:40)
[2019-11-30] MEDS: LOSARTAN POTASSIUM 25 MG TABLET PO SCH (09:05)
[2019-11-30 20:00] VITALS: BP 128/69
[2019-12-01] MEDS: OXYCODONE HCL/ACETAMINOPHEN 5/325MG TABLET PO PRN ×5 (02:07→20:08)
[2019-12-01] MEDS: GABAPENTIN 300MG CAPSULE PO SCH ×3 (06:13→22:29)
[2019-12-01 07:43] VITALS: BP 146/73
[2019-12-01] MEDS: BACLOFEN 10MG TABLET PO SCH ×2 (08:25→17:10)
[2019-12-01] MEDS: DOCUSATE SODIUM 100MG CAPSULE PO SCH ×2 (08:25→17:10)
[2019-12-01] MEDS: AMLODIPINE 5MG TABLET PO SCH ×2 (08:26→20:08)
[2019-12-01] MEDS: LOSARTAN POTASSIUM 25 MG TABLET PO SCH (08:26)
[2019-12-01 20:02] VITALS: BP 133/68
[2019-12-02] MEDS: OXYCODONE HCL/ACETAMINOPHEN 5/325MG TABLET PO PRN ×6 (00:20→22:42)
[2019-12-02] MEDS: GABAPENTIN 300MG CAPSULE PO SCH ×4 (05:47→21:01)
[2019-12-02 08:00] VITALS: BP 144/73
[2019-12-02] MEDS: BACLOFEN 10MG TABLET PO SCH ×2 (08:47→17:57)
[2019-12-02] MEDS: DOCUSATE SODIUM 100MG CAPSULE PO SCH ×2 (08:48→17:57)
[2019-12-02] MEDS: LOSARTAN POTASSIUM 25 MG TABLET PO SCH (10:20)
[2019-12-02] MEDS: AMLODIPINE 5MG TABLET PO SCH ×2 (10:20→21:02)
[2019-12-02 20:00] VITALS: BP 120/62
[2019-12-03] MEDS: OXYCODONE HCL/ACETAMINOPHEN 5/325MG TABLET PO PRN ×5 (05:39→22:28)
[2019-12-03] MEDS: GABAPENTIN 300MG CAPSULE PO SCH ×3 (06:37→21:01)
[2019-12-03 08:28] VITALS: BP 126/64
[2019-12-03] MEDS: DOCUSATE SODIUM 100MG CAPSULE PO SCH ×2 (08:45→16:54)
[2019-12-03] MEDS: BACLOFEN 10MG TABLET PO SCH ×2 (08:45→16:54)
[2019-12-03] MEDS: AMLODIPINE 5MG TABLET PO SCH ×2 (08:46→21:01)
[2019-12-03] MEDS: LOSARTAN POTASSIUM 25 MG TABLET PO SCH (08:46)
[2019-12-03] MEDS ORDERED: TRAMADOL 50MG TABLET PO PRN (09:00)
[2019-12-03] MEDS: BISACODYL 5MG TABLET PO PRN (18:29)
[2019-12-03 20:00] VITALS: BP_SYST 124; BP_SYST 138; BP_DIAS 79; BP_DIAS 98
[2019-12-04] MEDS: GABAPENTIN 300MG CAPSULE PO SCH ×3 (05:37→21:17)
[2019-12-04] MEDS: LACTULOSE 20G/30ML UDC PO PRN (05:37)
[2019-12-04] MEDS: OXYCODONE HCL/ACETAMINOPHEN 5/325MG TABLET PO PRN ×5 (05:38→22:13)
[2019-12-04 08:05] VITALS: BP 131/80
[2019-12-04] MEDS: AMLODIPINE 5MG TABLET PO SCH ×2 (08:21→21:17)
[2019-12-04] MEDS: DOCUSATE SODIUM 100MG CAPSULE PO SCH ×2 (08:21→17:16)
[2019-12-04] MEDS: BACLOFEN 10MG TABLET PO SCH ×2 (08:21→17:16)
[2019-12-04] MEDS: LOSARTAN POTASSIUM 25 MG TABLET PO SCH (08:22)
[2019-12-04] MEDS: BISACODYL 5MG TABLET PO PRN (08:22)
[2019-12-04 20:00] VITALS: BP 132/61
[2019-12-05] MEDS: GABAPENTIN 300MG CAPSULE PO SCH ×3 (06:20→21:52)
[2019-12-05 08:00] VITALS: BP 142/81
[2019-12-05] MEDS: OXYCODONE HCL/ACETAMINOPHEN 5/325MG TABLET PO PRN ×3 (08:41→20:14)
[2019-12-05] MEDS: BACLOFEN 10MG TABLET PO SCH ×2 (09:06→16:38)
[2019-12-05] MEDS: LOSARTAN POTASSIUM 25 MG TABLET PO SCH (09:06)
[2019-12-05] MEDS: AMLODIPINE 5MG TABLET PO SCH ×2 (09:06→20:09)
[2019-12-05] MEDS: DOCUSATE SODIUM 100MG CAPSULE PO SCH ×2 (14:19→16:38)
[2019-12-05 20:00] VITALS: BP 131/67
[2019-12-06] MEDS: OXYCODONE HCL/ACETAMINOPHEN 5/325MG TABLET PO PRN ×6 (00:15→23:39)
[2019-12-06] MEDS: GABAPENTIN 300MG CAPSULE PO SCH ×3 (05:35→22:07)
[2019-12-06 08:00] VITALS: BP 136/75
[2019-12-06] MEDS: BACLOFEN 10MG TABLET PO SCH ×2 (08:20→16:11)
[2019-12-06] MEDS: DOCUSATE SODIUM 100MG CAPSULE PO SCH ×2 (08:20→16:11)
[2019-12-06] MEDS: LOSARTAN POTASSIUM 25 MG TABLET PO SCH (08:21)
[2019-12-06] MEDS: AMLODIPINE 5MG TABLET PO SCH ×2 (08:21→20:04)
[2019-12-06 20:00] VITALS: BP 125/64
[2019-12-07] MEDS: OXYCODONE HCL/ACETAMINOPHEN 5/325MG TABLET PO PRN ×5 (03:49→23:59)
[2019-12-07] MEDS: GABAPENTIN 300MG CAPSULE PO SCH ×3 (05:15→21:01)
[2019-12-07] MEDS: BISACODYL 5MG TABLET PO PRN (05:16)
[2019-12-07 08:00] VITALS: BP 136/77
[2019-12-07] MEDS: BACLOFEN 10MG TABLET PO SCH ×2 (09:02→17:19)
[2019-12-07] MEDS: LOSARTAN POTASSIUM 25 MG TABLET PO SCH (09:02)
[2019-12-07] MEDS: DOCUSATE SODIUM 100MG CAPSULE PO SCH ×2 (09:02→17:19)
[2019-12-07] MEDS: AMLODIPINE 5MG TABLET PO SCH ×2 (09:02→20:56)
[2019-12-07] MEDS: LACTULOSE 20G/30ML UDC PO PRN (18:14)
[2019-12-07 20:00] VITALS: BP 136/70
[2019-12-08] MEDS: OXYCODONE HCL/ACETAMINOPHEN 5/325MG TABLET PO PRN ×5 (04:02→22:08)
[2019-12-08] MEDS: LACTULOSE 20G/30ML UDC PO PRN (05:48)
[2019-12-08] MEDS: GABAPENTIN 300MG CAPSULE PO SCH ×3 (05:48→21:00)
[2019-12-08 08:23] VITALS: BP 160/56
[2019-12-08] MEDS: DOCUSATE SODIUM 100MG CAPSULE PO SCH ×2 (08:59→18:01)
[2019-12-08] MEDS: BACLOFEN 10MG TABLET PO SCH ×2 (09:00→18:01)
[2019-12-08] MEDS: LOSARTAN POTASSIUM 25 MG TABLET PO SCH (09:00)
[2019-12-08] MEDS: AMLODIPINE 5MG TABLET PO SCH ×2 (09:00→21:01)
[2019-12-08 20:00] VITALS: BP 128/68
[2019-12-09] MEDS: OXYCODONE HCL/ACETAMINOPHEN 5/325MG TABLET PO PRN ×4 (05:14→21:27)
[2019-12-09] MEDS: GABAPENTIN 300MG CAPSULE PO SCH ×3 (06:17→21:27)
[2019-12-09 07:43] VITALS: BP 141/73
[2019-12-09] MEDS: BACLOFEN 10MG TABLET PO SCH ×2 (09:06→17:00)
[2019-12-09] MEDS: LOSARTAN POTASSIUM 25 MG TABLET PO SCH (09:06)
[2019-12-09] MEDS: AMLODIPINE 5MG TABLET PO SCH ×2 (09:06→21:27)
[2019-12-09] MEDS: DOCUSATE SODIUM 100MG CAPSULE PO SCH ×2 (09:06→16:59)
[2019-12-09] MEDS: TRAMADOL 50MG TABLET PO PRN (16:59)
[2019-12-09 21:15] VITALS: BP 138/67
[2019-12-10] MEDS: OXYCODONE HCL/ACETAMINOPHEN 5/325MG TABLET PO PRN ×4 (02:00→20:59)
[2019-12-10] MEDS: GABAPENTIN 300MG CAPSULE PO SCH ×3 (06:08→22:12)
[2019-12-10 08:00] VITALS: BP 135/71
[2019-12-10] MEDS: LOSARTAN POTASSIUM 25 MG TABLET PO SCH (08:31)
[2019-12-10] MEDS: BACLOFEN 10MG TABLET PO SCH ×2 (08:31→18:23)
[2019-12-10] MEDS: AMLODIPINE 5MG TABLET PO SCH ×2 (08:32→22:12)
[2019-12-10] MEDS: DOCUSATE SODIUM 100MG CAPSULE PO SCH ×2 (08:32→18:23)
[2019-12-10] MEDS: TRAMADOL 50MG TABLET PO PRN ×2 (10:14→18:24)
[2019-12-10 20:21] VITALS: BP 145/68
[2019-12-11] MEDS: OXYCODONE HCL/ACETAMINOPHEN 5/325MG TABLET PO PRN ×3 (04:58→21:22)
[2019-12-11] MEDS: GABAPENTIN 300MG CAPSULE PO SCH ×3 (06:21→22:50)
[2019-12-11 08:00] VITALS: BP 140/65
[2019-12-11] MEDS: DOCUSATE SODIUM 100MG CAPSULE PO SCH ×2 (08:33→16:41)
[2019-12-11] MEDS: AMLODIPINE 5MG TABLET PO SCH ×2 (08:33→22:51)
[2019-12-11] MEDS: BACLOFEN 10MG TABLET PO SCH ×2 (08:33→16:42)
[2019-12-11] MEDS: LOSARTAN POTASSIUM 25 MG TABLET PO SCH (08:34)
[2019-12-11] MEDS: TRAMADOL 50MG TABLET PO PRN ×2 (08:37→16:42)
[2019-12-11 11:48] VITALS: BP 140/65
[2019-12-11 20:00] VITALS: BP 133/63
[2019-12-11 23:04] VITALS: BP 133/63
[2019-12-12] MEDS: OXYCODONE HCL/ACETAMINOPHEN 5/325MG TABLET PO PRN ×4 (01:51→20:12)
[2019-12-12] MEDS: TRAMADOL 50MG TABLET PO PRN (06:30)
[2019-12-12 08:09] VITALS: BP 147/69
[2019-12-12] MEDS: LOSARTAN POTASSIUM 25 MG TABLET PO SCH (08:47)
[2019-12-12] MEDS: BACLOFEN 10MG TABLET PO SCH ×2 (08:47→16:08)
[2019-12-12] MEDS: DOCUSATE SODIUM 100MG CAPSULE PO SCH (08:47)
[2019-12-12 20:00] VITALS: BP 119/69
[2019-12-12] MEDS: GABAPENTIN 300MG CAPSULE PO SCH (21:29)
[2019-12-12] MEDS: AMLODIPINE 5MG TABLET PO SCH (21:29)
[2019-12-13] MEDS: OXYCODONE HCL/ACETAMINOPHEN 5/325MG TABLET PO PRN ×5 (01:26→23:46)
[2019-12-13] MEDS: GABAPENTIN 300MG CAPSULE PO SCH ×3 (05:31→21:48)
[2019-12-13 08:00] VITALS: BP 147/81
[2019-12-13] MEDS: DOCUSATE SODIUM 100MG CAPSULE PO SCH ×2 (09:16→17:01)
[2019-12-13] MEDS: AMLODIPINE 5MG TABLET PO SCH ×2 (09:16→20:04)
[2019-12-13] MEDS: BACLOFEN 10MG TABLET PO SCH ×2 (09:17→17:05)
[2019-12-13] MEDS: BISACODYL 5MG TABLET PO PRN (09:17)
[2019-12-13] MEDS: LOSARTAN POTASSIUM 25 MG TABLET PO SCH (09:18)
[2019-12-13] MEDS: LACTULOSE 20G/30ML UDC PO PRN (09:19)
[2019-12-13 16:36] LABS: BASOPHILS % 0.7 % (0.0-2.0); EOSINOPHILS % 0.3 % (0.0-5.0); HEMATOCRIT. 41.5 % (42.0-52.0); LYMPHOCYTES % 16.5 % (20.0-50.0); MEAN CORPUSCULAR VOLUME 82.9 fL (80.0-94.0); MEAN PLATELET VOLUME 7.7 fl (7.4-10.4); MONOCYTES % 6.5 % (2.0-8.0); PLATELET 277 x1000/uL (130-400); RED CELL DISTRIBUTION WIDTH 14.5 % (11.6-14.6)
[2019-12-13 16:38] LABS: CHLORIDE 103 mEq/L (98-107)
[2019-12-13 17:14] VITALS: BP 124/60
[2019-12-13 20:00] VITALS: BP 119/68
[2019-12-14] MEDS: OXYCODONE HCL/ACETAMINOPHEN 5/325MG TABLET PO PRN ×3 (04:01→19:58)
[2019-12-14] MEDS: GABAPENTIN 300MG CAPSULE PO SCH ×3 (05:21→21:03)
[2019-12-14] MEDS: LACTULOSE 20G/30ML UDC PO PRN (06:13)
[2019-12-14 08:00] VITALS: BP 115/73
[2019-12-14] MEDS: DOCUSATE SODIUM 100MG CAPSULE PO SCH ×2 (08:51→16:43)
[2019-12-14] MEDS: LOSARTAN POTASSIUM 25 MG TABLET PO SCH (08:51)
[2019-12-14] MEDS: AMLODIPINE 5MG TABLET PO SCH ×2 (08:52→21:03)
[2019-12-14] MEDS: BACLOFEN 10MG TABLET PO SCH ×2 (08:52→16:42)
[2019-12-14] MEDS: TRAMADOL 50MG TABLET PO PRN ×2 (08:52→16:43)
[2019-12-14 20:00] VITALS: BP 119/66
[2019-12-14] MEDS: HYDROCORTISONE 1% CREAM 30GM TOP SCH (21:04)
[2019-12-14 21:57] VITALS: BP 101/68
[2019-12-15] MEDS: OXYCODONE HCL/ACETAMINOPHEN 5/325MG TABLET PO PRN ×5 (03:08→20:55)
[2019-12-15] MEDS: GABAPENTIN 300MG CAPSULE PO SCH ×3 (05:02→21:04)
[2019-12-15 08:00] VITALS: BP 133/67
[2019-12-15] MEDS: DOCUSATE SODIUM 100MG CAPSULE PO SCH ×2 (08:26→16:39)
[2019-12-15] MEDS: AMLODIPINE 5MG TABLET PO SCH ×2 (08:26→20:54)
[2019-12-15] MEDS: BACLOFEN 10MG TABLET PO SCH ×2 (08:26→16:39)
[2019-12-15] MEDS: LOSARTAN POTASSIUM 25 MG TABLET PO SCH (08:26)
[2019-12-15] MEDS: HYDROCORTISONE 1% CREAM 30GM TOP SCH ×2 (08:28→20:54)
[2019-12-15 11:25] VITALS: BP 124/62
[2019-12-15] MEDS: TRAMADOL 50MG TABLET PO PRN ×2 (11:35→22:39)
[2019-12-15 13:05] VITALS: BP 127/72
[2019-12-15 16:30] VITALS: BP 125/61
[2019-12-15 20:00] VITALS: BP 132/69
[2019-12-15 23:19] VITALS: BP 132/69
[2019-12-16] VITALS (9 sets, daily range): BP systolic 118–180; BP diastolic 61–119
[2019-12-16] MEDS: OXYCODONE HCL/ACETAMINOPHEN 5/325MG TABLET PO PRN ×5 (02:38→20:14)
[2019-12-16] MEDS: GABAPENTIN 300MG CAPSULE PO SCH ×3 (06:11→20:13)
[2019-12-16] MEDS: DOCUSATE SODIUM 100MG CAPSULE PO SCH ×2 (08:10→16:03)
[2019-12-16] MEDS: HYDROCORTISONE 1% CREAM 30GM TOP SCH ×2 (08:10→20:13)
[2019-12-16] MEDS: LOSARTAN POTASSIUM 25 MG TABLET PO SCH (08:10)
[2019-12-16] MEDS: BACLOFEN 10MG TABLET PO SCH ×2 (08:10→16:03)
[2019-12-16] MEDS: AMLODIPINE 5MG TABLET PO SCH ×2 (08:10→20:13)
[2019-12-16] MEDS: TRAMADOL 50MG TABLET PO PRN ×2 (09:13→17:35)
[2019-12-17] MEDS: OXYCODONE HCL/ACETAMINOPHEN 5/325MG TABLET PO PRN ×5 (00:20→21:16)
[2019-12-17] MEDS: BISACODYL 5MG TABLET PO PRN (05:01)
[2019-12-17] MEDS: GABAPENTIN 300MG CAPSULE PO SCH ×3 (05:01→22:35)
[2019-12-17 08:01] VITALS: BP 117/68
[2019-12-17] MEDS: AMLODIPINE 5MG TABLET PO SCH ×2 (08:21→22:35)
[2019-12-17] MEDS: DOCUSATE SODIUM 100MG CAPSULE PO SCH ×2 (08:21→16:03)
[2019-12-17] MEDS: LOSARTAN POTASSIUM 25 MG TABLET PO SCH (08:21)
[2019-12-17] MEDS: BACLOFEN 10MG TABLET PO SCH ×2 (08:22→16:03)
[2019-12-17] MEDS: HYDROCORTISONE 1% CREAM 30GM TOP SCH ×2 (08:22→21:17)
[2019-12-17] MEDS: TRAMADOL 50MG TABLET PO PRN ×2 (10:24→16:03)
[2019-12-17 20:00] VITALS: BP 124/68
[2019-12-18] MEDS: TRAMADOL 50MG TABLET PO PRN (00:31)
[2019-12-18] MEDS: GABAPENTIN 300MG CAPSULE PO SCH ×2 (05:56→13:16)
[2019-12-18] MEDS: OXYCODONE HCL/ACETAMINOPHEN 5/325MG TABLET PO PRN ×2 (05:59→11:46)
[2019-12-18 08:00] VITALS: BP 137/74
[2019-12-18] MEDS: LOSARTAN POTASSIUM 25 MG TABLET PO SCH (08:20)
[2019-12-18] MEDS: DOCUSATE SODIUM 100MG CAPSULE PO SCH (08:21)
[2019-12-18] MEDS: LACTULOSE 20G/30ML UDC PO PRN (08:21)
[2019-12-18] MEDS: BACLOFEN 10MG TABLET PO SCH (08:21)
[2019-12-18] MEDS: AMLODIPINE 5MG TABLET PO SCH (08:21)
[2019-12-18] MEDS: HYDROCORTISONE 1% CREAM 30GM TOP SCH (08:21)
[2019-12-18] MEDS ORDERED: LOSA25TA3 PO (10:33)
[2019-12-18] MEDS ORDERED: AMLO5TAB88 PO (10:33)
[2019-12-18 12:34] VITALS: BP 137/74
== END 2019-12-18 14:30 | DRG 347 ==
LOC: UNDOADMIN 18:51
PROVIDERS: ADMIT Psychiatry & Neurology Neurology; ATTEND Internal Medicine
DX: M48.02 Spinal stenosis, cervical region (principal); G82.50 Quadriplegia, unspecified; M47.12 Other spondylosis with myelopathy, cervical region; E66.01 Morbid (severe) obesity due to excess calories; K59.00 Constipation, unspecified; M54.12 Radiculopathy, cervical region; M48.04 Spinal stenosis, thoracic region; M79.605 Pain in left leg; M79.604 Pain in right leg; Z79.899 Other long term (current) drug therapy; Z68.41 Body mass index [BMI] 40.0-44.9, adult; Z98.1 Arthrodesis status; M79.603 Pain in arm, unspecified
CPT/HCPCS: 36415; 80048; 85025; 92523; 92610; 93970; 97110; 97112; 97162; 97167; 97530; 97535; 97542; 97760; J2543; J7060; L0172; U0003-CS